=== PATIENT | male | born 1935 | race Caucasian/White ===

== ENCOUNTER 2017-02-14 00:29 | Inpatient (IN) | payer MEDICARE, BC ==
--- NOTE | 2017-02-15 14:28 | NUR ---
1352: PT OFF FLOOR FOR PROCEDURE. WILL CONTINUE TO MONITOR
--- NOTE | 2017-02-15 18:15 | NUR ---
1720: PT BACK ON FLOOR FROM PROCEDURE. PT CONFUSED, CLIMBING OOB, AND BECOMING AGITATED. 02 SAT 88% ON RA, 02 AT 2L/NC APPLIED. WILL CONTINUE TO MONITOR
--- NOTE | 2017-02-17 15:44 | NUR ---
1449 PATIENT REPORT GIVEN TO [facility] ICU FOR PATIENT TO TRANSFER TO ICU TO BE STARTED ON CARDIZEM DRIP IV. 1535 PATIENT TRANSFERRED TO ICU VIA HOSPITAL BED. DAUGHTER AT BEDSIDE. PATIENT STABLE AT THIS TIME 4LNC O2 ON.
--- NOTE | 2017-02-18 01:39 | NUR ---
0100 02/18/17 PT VERY CONFUSED AND VERY RESTLESS WITH MULTIPLE ATTEMPTS TO ARISE FROM BED. EXIT ALARMED, SIDE RAILS UP X 3. PT PULLED IV APART AND CLOTTED TUBING. IV D/C'D AND NEW SITE STARTED # 20 GUAGE RIGHT HAND. ATIVAN 0.5 MG ADMINISTERED FOR SYMPTOMS OF ANXIETY.
--- NOTE | 2017-02-18 02:07 | NUR ---
0200 02/18/[address] JOHN OF PT'S ONGOING AGITATION AND ANXIETY. ORDERS RECEIVED.
--- NOTE | 2017-02-18 03:29 | NUR ---
0300 02/18/17 PT RESTING IN BED, SLEEPING. RESTLESS ACTIVITY AND ANXIETY HAVE RESOLVED.
--- NOTE | 2017-02-19 09:55 | NUR ---
PATIENT EXITED ICU VIA W/C ACCOMPANIED BY RN, LINE THERAPIST, AND ENGRAVER AUTOMATIC IN NO ACUTE DISTRESS TO GO HAVE AN ACUTE ABDOMINAL SERIES OBTAINED.
--- NOTE | 2017-02-19 10:15 | NUR ---
PATIENT RETURNED TO THE ICU VIA W/C ACCOMPANIED BY RN, CARDROOM DRAWING RUNNER, AND KITCHEN WORK SUPERVISOR IN NO ACUTE DISTRESS AFTER HAVING AN ACUTE ABDOMINAL SERIES COMPLETED.
--- NOTE | 2017-02-20 14:35 | NUR ---
1230: REPORT FROM MELLISSA MAE; PT BEING TRANSFERRED FROM ICU TO ROOM 303 BY WHEELCHAIR ON TELE. PT ON RA, IV SL. FAMILY AT BEDSIDE. PT ASSISTED UP TO BATHROOM WITH WALKER.
[2017-02-27] MEDS ORDERED: XARELTO20 MG PO (08:47)
[2017-02-27] MEDS ORDERED: PRAVASTATIN SOD10 MG PO (08:47)
[2017-02-27] MEDS ORDERED: SYNTHROID25 MCG PO (08:47)
[2017-02-27] MEDS ORDERED: FLOMAX0.4 MG PO (08:47)
[2017-02-27] MEDS ORDERED: LOPRESSOR50 MG PO (08:48)
[2017-02-27] MEDS ORDERED: ACETAMINOPHEN325 MG PO (08:48)
[2017-02-27] MEDS ORDERED: LACTULOSE20 GM/30 M PO (08:48)
[2017-02-27] MEDS ORDERED: VENTOLIN HFA8 GM IH (08:48)
[2017-02-27] MEDS ORDERED: PYRIDIUM200 MG PO (08:49)
[2017-02-27] MEDS ORDERED: LANOXIN125 MCG PO (08:49)
[2017-02-27] MEDS ORDERED: TENORMIN25 MG PO (10:17)
[2017-02-27] MEDS ORDERED: MEDROL4 M1 PO (10:18)
== END 2017-02-21 14:05 | disposition home or self-care (01) | DRG 418 ==
LOC: ER 00:29 → MED 04:31 → ICU 02-17 15:30 → MED 02-20 12:20
PROVIDERS: ADMIT Internal Medicine
PROC: 0FT44ZZ Resection of Gallbladder, Percutaneous Endoscopic Approach (ICD-10-PCS; principal; 2017-02-15)
PROC: BF13YZZ Fluoroscopy of Gallbladder and Bile Ducts using Other Contrast (ICD-10-PCS; 2017-02-15)
DX: K80.00 Calculus of gallbladder with acute cholecystitis without obstruction (principal); I97.89 Other postprocedural complications and disorders of the circulatory system, not elsewhere classified; K91.3 Postprocedural intestinal obstruction; J95.89 Other postprocedural complications and disorders of respiratory system, not elsewhere classified; J98.11 Atelectasis; F05 Delirium due to known physiological condition; K62.5 Hemorrhage of anus and rectum; N17.9 Acute kidney failure, unspecified; J44.1 Chronic obstructive pulmonary disease with (acute) exacerbation; N40.1 Benign prostatic hyperplasia with lower urinary tract symptoms; R33.8 Other retention of urine; J60 Coalworker's pneumoconiosis; K59.09 Other constipation; E03.9 Hypothyroidism, unspecified; E78.5 Hyperlipidemia, unspecified; Z88.8 Allergy status to other drugs, medicaments and biological substances; H91.90 Unspecified hearing loss, unspecified ear; R41.3 Other amnesia; I25.10 Atherosclerotic heart disease of native coronary artery without angina pectoris; E66.9 Obesity, unspecified; I11.9 Hypertensive heart disease without heart failure; I08.0 Rheumatic disorders of both mitral and aortic valves; I48.0 Paroxysmal atrial fibrillation; I27.2 Other secondary pulmonary hypertension; Z79.899 Other long term (current) drug therapy; Z68.30 Body mass index [BMI] 30.0-30.9, adult
CPT/HCPCS: 36415; 74020; 87502; 93306; 97161-GP; J1650; J1885; J2060; J2704; J2765; P9047; Q9967

== ENCOUNTER 2017-02-14 00:29 | Emergency (ER) | payer MEDICARE, BC ==
[2017-02-27] MEDS ORDERED: PRAVASTATIN SOD10 MG PO (08:47)
[2017-02-27] MEDS ORDERED: FLOMAX0.4 MG PO (08:47)
[2017-02-27] MEDS ORDERED: XARELTO20 MG PO (08:47)
[2017-02-27] MEDS ORDERED: SYNTHROID25 MCG PO (08:47)
[2017-02-27] MEDS ORDERED: LACTULOSE20 GM/30 M PO (08:48)
[2017-02-27] MEDS ORDERED: VENTOLIN HFA8 GM IH (08:48)
[2017-02-27] MEDS ORDERED: ACETAMINOPHEN325 MG PO (08:48)
[2017-02-27] MEDS ORDERED: LOPRESSOR50 MG PO (08:48)
[2017-02-27] MEDS ORDERED: LANOXIN125 MCG PO (08:49)
[2017-02-27] MEDS ORDERED: PYRIDIUM200 MG PO (08:49)
[2017-02-27] MEDS ORDERED: TENORMIN25 MG PO (10:17)
[2017-02-27] MEDS ORDERED: MEDROL4 M1 PO (10:18)
== END 2017-02-14 04:30 | disposition critical access hospital (66) ==
LOC: ER 00:29
DX: K92.2 Gastrointestinal hemorrhage, unspecified (principal); K52.9 Noninfective gastroenteritis and colitis, unspecified; I10 Essential (primary) hypertension; J44.9 Chronic obstructive pulmonary disease, unspecified; E03.9 Hypothyroidism, unspecified; E78.5 Hyperlipidemia, unspecified; Z79.82 Long term (current) use of aspirin; Z79.899 Other long term (current) drug therapy
CPT/HCPCS: 96374

== ENCOUNTER 2017-02-22 12:32 | Inpatient (IN) | payer MEDICARE, BC ==
--- NOTE | 2017-02-25 16:30 | NUR ---
1535: DISCHARGE INSTRUCTIONS GIVEN TO PT'S DAUGHTER ON DX, MEDICATIONS (NEW MEDS: PYRIDIUM, METOPROLOL, AND DIGOXIN) AND ALSO REINFORCED INSTRUCTIONS TO DC ATENTOLOL. DAUGHTER VERBALIZED UNDERSTANDING AND REPEATED BACK INSTRUCTIONS. ALSO INSTRUCTED PT/DAUGHTER THAT [facility] WILL BE AT HIS HOUSE MONDAY FOR PT/OT/SN, TO DRAW LABS, AND INSTR FOR BUTTS CATHETER CARE. PT/CG VERB UNDERSTANDING.
--- NOTE | 2017-02-25 16:34 | NUR ---
1515: PTS BUTTS CATHETER DRAINAGE BAG CHANGED TO LEG BAG. INSTRUCTIONS GIVEN TO HIM AND DAUGHTER. PT/CG VERB UNDERSTANDING
[2017-02-27] MEDS ORDERED: FLOMAX0.4 MG PO (08:47)
[2017-02-27] MEDS ORDERED: XARELTO20 MG PO (08:47)
[2017-02-27] MEDS ORDERED: SYNTHROID25 MCG PO (08:47)
[2017-02-27] MEDS ORDERED: PRAVASTATIN SOD10 MG PO (08:47)
[2017-02-27] MEDS ORDERED: VENTOLIN HFA8 GM IH (08:48)
[2017-02-27] MEDS ORDERED: ACETAMINOPHEN325 MG PO (08:48)
[2017-02-27] MEDS ORDERED: LACTULOSE20 GM/30 M PO (08:48)
[2017-02-27] MEDS ORDERED: LOPRESSOR50 MG PO (08:48)
[2017-02-27] MEDS ORDERED: PYRIDIUM200 MG PO (08:49)
[2017-02-27] MEDS ORDERED: LANOXIN125 MCG PO (08:49)
[2017-02-27] MEDS ORDERED: TENORMIN25 MG PO (10:17)
[2017-02-27] MEDS ORDERED: MEDROL4 M1 PO (10:18)
== END 2017-02-25 15:45 | disposition home health service (06) | DRG 308 ==
LOC: ER 12:32 → ICU 15:36
PROVIDERS: ADMIT Internal Medicine
DX: I48.91 Unspecified atrial fibrillation (principal); J81.0 Acute pulmonary edema; N28.9 Disorder of kidney and ureter, unspecified; J60 Coalworker's pneumoconiosis; N40.1 Benign prostatic hyperplasia with lower urinary tract symptoms; R33.8 Other retention of urine; I10 Essential (primary) hypertension; K59.00 Constipation, unspecified; I95.9 Hypotension, unspecified; Z79.01 Long term (current) use of anticoagulants; Z79.899 Other long term (current) drug therapy; E03.9 Hypothyroidism, unspecified; Z90.49 Acquired absence of other specified parts of digestive tract; Z80.9 Family history of malignant neoplasm, unspecified
CPT/HCPCS: 36415; 87502; 97162-GP; 97166; J1160; J1940; Q9967

== ENCOUNTER 2017-02-22 12:32 | Emergency (ER) | payer MEDICARE, BC ==
[2017-02-27] MEDS ORDERED: SYNTHROID25 MCG PO (08:47)
[2017-02-27] MEDS ORDERED: FLOMAX0.4 MG PO (08:47)
[2017-02-27] MEDS ORDERED: XARELTO20 MG PO (08:47)
[2017-02-27] MEDS ORDERED: PRAVASTATIN SOD10 MG PO (08:47)
[2017-02-27] MEDS ORDERED: ACETAMINOPHEN325 MG PO (08:48)
[2017-02-27] MEDS ORDERED: VENTOLIN HFA8 GM IH (08:48)
[2017-02-27] MEDS ORDERED: LOPRESSOR50 MG PO (08:48)
[2017-02-27] MEDS ORDERED: LACTULOSE20 GM/30 M PO (08:48)
[2017-02-27] MEDS ORDERED: LANOXIN125 MCG PO (08:49)
[2017-02-27] MEDS ORDERED: PYRIDIUM200 MG PO (08:49)
[2017-02-27] MEDS ORDERED: TENORMIN25 MG PO (10:17)
[2017-02-27] MEDS ORDERED: MEDROL4 M1 PO (10:18)
== END 2017-02-22 15:35 | disposition critical access hospital (66) ==
LOC: ER 12:32
DX: I11.0 Hypertensive heart disease with heart failure (principal); I50.9 Heart failure, unspecified; E78.5 Hyperlipidemia, unspecified; I48.91 Unspecified atrial fibrillation; E03.9 Hypothyroidism, unspecified; Z90.49 Acquired absence of other specified parts of digestive tract; Z79.82 Long term (current) use of aspirin; Z79.899 Other long term (current) drug therapy
CPT/HCPCS: 36415; 87502; 96365; 96366; 96375; J1940; Q9967

== ENCOUNTER 2017-04-10 10:44 | Emergency (ER) | payer MEDICARE, BC ==
[~2017-04-10 10:44] MED LIST: ACETAMINOPHEN325 MG PO; FLOMAX0.4 MG PO; LACTULOSE20 GM/30 M PO; LANOXIN125 MCG PO; LOPRESSOR50 MG PO; MEDROL4 M1 PO; PRAVASTATIN SOD10 MG PO; PYRIDIUM200 MG PO; SYNTHROID25 MCG PO; TENORMIN25 MG PO; VENTOLIN HFA8 GM IH; XARELTO20 MG PO
== END 2017-04-10 16:21 | disposition critical access hospital (66) ==
LOC: ER 10:44
DX: M54.5 Low back pain (principal); R00.1 Bradycardia, unspecified; R42 Dizziness and giddiness; I10 Essential (primary) hypertension; I25.10 Atherosclerotic heart disease of native coronary artery without angina pectoris; Z90.49 Acquired absence of other specified parts of digestive tract; Z79.899 Other long term (current) drug therapy; W07.XXXA Fall from chair, initial encounter
CPT/HCPCS: 36415; 96361; 96374

== ENCOUNTER 2017-04-10 10:44 | Inpatient (IN) | payer MEDICARE, BC ==
[~2017-04-10] VITALS: Ht 175.3 cm; Wt 92.6 kg
--- NOTE | 2017-04-12 14:46 | NUR ---
0900- HAS SEEN AND ASSESSED PT THIS AM. UPDATED ON PT CONDITION. HR AND B/P: STABLE. C/O BACK PAIN WITH ORDERED PAIN MEDS GIVEN. DR. HA TO SEE PT. POSSIBLE D/C TO HOME IF NOT REHAB FACILITY 1230-DR. HA HAS SEEN PT AND SPOKE TO DR. HILL REGARDING POC. PT TO BE DISCHARGED TO HOME TODAY. FAMILY DOES NOT PREFER REHAB FACILITY AT THIS TIME 1350-DISCHARGE INSTRUCTIONS GIVEN TO PT AND DAUGHTER AT THIS TIME. VOICES UNDERSTANDING. PT DISCHARGED TO HOME VIA WC AND POV WITH DAUGHTER AT THIS TIME
== END 2017-04-12 13:50 | disposition home or self-care (01) | DRG 310 ==
LOC: ER 10:44 → ICU 16:22
PROVIDERS: ADMIT Internal Medicine
DX: I49.5 Sick sinus syndrome (principal); M54.5 Low back pain; Z91.81 History of falling; I48.2 Chronic atrial fibrillation; R53.1 Weakness; R42 Dizziness and giddiness; E78.5 Hyperlipidemia, unspecified; E03.9 Hypothyroidism, unspecified; J60 Coalworker's pneumoconiosis; N40.0 Benign prostatic hyperplasia without lower urinary tract symptoms; Z90.49 Acquired absence of other specified parts of digestive tract; M19.90 Unspecified osteoarthritis, unspecified site; I11.9 Hypertensive heart disease without heart failure; Z79.01 Long term (current) use of anticoagulants; Z79.899 Other long term (current) drug therapy; G89.29 Other chronic pain
CPT/HCPCS: 36415; 97162-GP; 97166; J7040